=== PATIENT | female | born 1975 | race American Indian/Alaskan Native ===

== ENCOUNTER 2017-02-17 17:54 | Emergency (ER) | payer MEDICAID ==
[2017-02-17 19:22] VITALS: BP 180/102
[2017-02-17] MEDS ORDERED: CATAPRES PO ONE (19:30)
[2017-02-17] MEDS ORDERED: CATAPRES ONE (19:32)
== END 2017-02-17 21:10 | disposition left against medical advice (07) ==
LOC: ED 17:54
DX: M25.552 Pain in left hip (principal); Z53.21 Procedure and treatment not carried out due to patient leaving prior to being seen by health care provider
CPT/HCPCS: 82962